=== PATIENT | female | born 1980 | race Caucasian/White ===

== ENCOUNTER → 2016-09-26 | Outpatient (CLI) | payer OTHER ==
--- NOTE | 2016-09-26 11:54 | Diagnostic Imaging Report ---
EXAMINATION: Left breast mammogram. INDICATION: Asymmetry along the lateral aspect of the left breast. Lumpy area in the lateral aspect of the left breast appears with cycle and is unchanged for 7 years. TECHNIQUE: Digital diagnostic mammography was performed of the left breast with a Computer Aided Detection (CAD) system. The area of asymmetry in the lateral aspect of the left breast was marked. COMPARISON: 02/17/2016. FINDINGS: There is an unchanged asymmetry along the lateral aspect of the left breast measuring about 6 mm. No definite correlate on the lateral projection. Otherwise, the slightly dense parenchyma is unchanged from the previous exam. The area marked for the lump in the outer aspect demonstrates no definitive underlying abnormality. Since this lump is unchanged for 7 years and is cyclic, it is indicative of benign etiology. IMPRESSION: Stable left breast mammogram. Another 6 month mammogram to ensure further stability of the lateral left breast asymmetry is recommended. ACR BI-RADS Category 3: Probably benign findings. Result letter will be mailed to the patient. Note: At least 10% of breast cancer is not imaged by mammography. Dictated by: Dictated on workstation # [id number]
== END ==
LOC: RAD 08:20
PROVIDERS: ATTEND Family Medicine
DX: R92.8 Other abnormal and inconclusive findings on diagnostic imaging of breast (principal)

== ENCOUNTER → 2017-03-16 | Outpatient (CLI) | payer OTHER ==
--- NOTE | 2017-03-16 19:14 | Diagnostic Imaging Report ---
Bilateral diagnostic mammogram. INDICATION: Follow-up lateral left breast asymmetry. The current study was also evaluated with a Computer Aided Detection (CAD) system. FINDINGS: The breasts are composed of scattered fibroglandular densities. The asymmetry seen along the outer aspect of the left breast appears less prominent compared to prior exam in favor of summation artifact of parenchyma with no definitive underlying mass seen on tomography evaluation. The right breast demonstrates no significant change. IMPRESSION: Less prominent asymmetry along the lateral aspect of the left breast is favored to be related to summation effect of parenchyma. No underlying lesion identified. Another follow-up in 12 months is recommended to ensure longer-term stability. ACR BI-RADS Category 3: Probably benign findings. Result letter will be mailed to the patient. Note: At least 10% of breast cancer is not imaged by mammography. Dictated by: Dictated on workstation # [id number]
== END ==
LOC: RAD 07:54
PROVIDERS: ATTEND Family Medicine
DX: N64.89 Other specified disorders of breast (principal)
CPT/HCPCS: 77066

== ENCOUNTER → 2017-05-11 | Outpatient (CLI) | payer OTHER ==
--- NOTE | 2017-05-11 10:09 | Diagnostic Imaging Report ---
CLINICAL INDICATION: Patient states all over headaches x2 months, memory issues, hearing issues, disturbing thoughts and deep left ear pain. Patient has history of traumatic brain injury at 15. EXAM: Axial CT scan of the brain performed without IV contrast. COMPARISON: None. FINDINGS: There is no evidence of acute cerebral infarct, intracranial hemorrhage, or gross mass effect. There is normal chicas-white matter distinction. The brain parenchymal volume appears appropriate for patient's age. There is no significant midline shift or herniation. There is no evidence of hydrocephalus. The basal cisterns are unremarkable. The skull, extracranial soft tissue, and orbits are unremarkable. The paranasal sinuses are unremarkable. IMPRESSION: Unremarkable CT scan of the brain. Dictated by: Dictated on workstation # [id number]
== END ==
LOC: RAD 09:30
PROVIDERS: ATTEND Family Medicine
DX: G44.059 Short lasting unilateral neuralgiform headache with conjunctival injection and tearing (SUNCT), not intractable (principal); H92.02 Otalgia, left ear
CPT/HCPCS: 70450

== ENCOUNTER → 2018-08-01 | Outpatient (CLI) | payer OTHER ==
--- NOTE | 2018-08-01 09:51 | Diagnostic Imaging Report ---
INDICATION: 12 month followup of left breast density. COMPARISON: 03/16/2017 and 02/17/2016. TECHNIQUE: 2D and 3D bilateral diagnostic mammography was performed with CAD. FINDINGS: Both breasts are heterogeneously dense, limiting the sensitivity of mammography. The asymmetric density in the outer left breast is stable. No new mass or malignant appearing microcalcifications are seen. The axillae are unremarkable. IMPRESSION: No mammographic features suspicious for malignancy. The patient may return to routine annual screening mammography. ACR BI-RADS Category 2: Benign findings. Result letter will be mailed to the patient. Note: At least 10% of breast cancer is not imaged by mammography. Dictated by: Dictated on workstation # [id number]
== END ==
LOC: RAD 09:06
PROVIDERS: ATTEND Family Medicine
DX: R92.2 Inconclusive mammogram (principal)
CPT/HCPCS: 77066

== ENCOUNTER → 2019-05-21 | Outpatient (CLI) | payer BC, OTHER ==
--- NOTE | 2019-05-21 16:00 | Diagnostic Imaging Report ---
INDICATION: Screening. The current study was also evaluated with a Computer Aided Detection (CAD) system. 3-D Tomographic imaging was also performed. COMPARISON: Comparison made with prior examinations from 08/01/2018, 03/16/2017, and 09/26/2016. FINDINGS: There are scattered fibroglandular densities bilaterally. There is no dominant mass, spiculated lesion, or suspicious calcification identified. There are a few benign-type calcifications. The skin, nipples, and axillae are unremarkable. IMPRESSION: Benign. ACR BI-RADS Category 2: Benign findings. Result letter will be mailed to the patient. Note: At least 10% of breast cancer is not imaged by mammography. Dictated by: Dictated on workstation # [id number]
== END ==
LOC: RAD 14:47
PROVIDERS: ATTEND Family Medicine
DX: Z12.31 Encounter for screening mammogram for malignant neoplasm of breast (principal)
CPT/HCPCS: 77067

== ENCOUNTER → 2019-05-27 | Outpatient (CLI) | payer BC ==
--- NOTE | 2019-05-27 17:12 | Diagnostic Imaging Report ---
PROCEDURE: US Non-ob pelvis comp/trans. TECHNIQUE: Multiple realtime grayscale images were obtained of the pelvis in various projections endovaginally. Transabdominal imaging was also performed. INDICATION: Abnormal uterine bleeding. FINDINGS: Uterus measures 9.1 x 4.7 x 5.6 cm without evidence of focal lesion. Endometrial thickness is 0.9 cm. Right ovary measures 2.2 x 2.6 x 2.6 cm and contains a heterogeneous nodular focus measuring 1.8 x 1.5 x 1.5 cm. Left ovary is somewhat obscured due to overlying bowel and measures approximately 2.8 x 1.5 x 1.6 cm. Blood flow cannot be confirmed in the left ovary. There is no significant pelvic free fluid. IMPRESSION: 1.8 x 1.5 cm nodule in the right ovary may represent hemorrhagic cyst. This could be further assessed on short-term follow-up study in two to three months. There is no evidence of ovarian torsion, although blood flow to the left ovary cannot be confirmed due to technical factors. Dictated by: Dictated on workstation # [id number]
== END ==
LOC: RAD 14:42
PROVIDERS: ATTEND Obstetrics & Gynecology
DX: N83.9 Noninflammatory disorder of ovary, fallopian tube and broad ligament, unspecified (principal); N93.8 Other specified abnormal uterine and vaginal bleeding
CPT/HCPCS: 76830; 76856

== ENCOUNTER → 2020-04-30 | Outpatient (CLI) | payer BC ==
--- NOTE | 2020-04-30 09:06 | Diagnostic Imaging Report ---
INDICATION: Routine screening. COMPARISON is made with prior mammograms of 05/21/2019 and 08/01/2018. 2-D and 3-D bilateral screening mammography was performed with CAD. Both breasts remain heterogeneously dense, limiting the sensitivity of mammography. There is a density in the posterior right breast lateral to the nipple line best seen on the CC view which appears more prominent on today's study. No definite correlate on the MLO view is identified but additional views are still recommended. The left breast is unremarkable. No malignant appearing microcalcifications are seen. Axillae are unremarkable. IMPRESSION: BI-RADS 0 Right breast density. Additional views are recommended for further evaluation. ACR BI-RADS Category 0: Incomplete. (Needs additional imaging evaluation). Result letter will be mailed to the patient. Note: At least 10% of breast cancer is not imaged by mammography. Dictated by: Dictated on workstation # [id number]
== END ==
LOC: RAD 08:00
PROVIDERS: ATTEND Student in an Organized Health Care Education/Training Program
DX: Z12.31 Encounter for screening mammogram for malignant neoplasm of breast (principal); R92.2 Inconclusive mammogram
CPT/HCPCS: 77063; 77067

== ENCOUNTER → 2020-05-13 | Outpatient (CLI) | payer BC ==
--- NOTE | 2020-05-14 08:07 | Diagnostic Imaging Report ---
INDICATION: A right breast density. Correlation is made with diagnostic mammogram earlier the same day and screening mammogram from 04/30/2020. Sonographic interrogation of outer right breast was performed. No suspicious sonographic abnormality is identified to account for the nodular density noted on mammogram. There is a tiny cyst at the 8 o'clock location 3 cm from the nipple measuring 3 mm. This likely incidental. IMPRESSION: BI-RADS Category 0 No sonographic abnormality is identified to account for the nodular density in the far posterior right breast slightly lateral of the midline. While this could represent superimposed fibroglandular tissue and it is reassuring that no sonographic abnormality is detected, breast MRI would be recommended for further evaluation, as patient is scheduled to undergo breast reduction surgery in 1 week. Dictated by: Dictated on workstation # [id number]
--- NOTE | 2020-05-15 08:44 | Diagnostic Imaging Report ---
INDICATION: Right breast density. Patient presents for additional views. Correlation is made with screening mammogram from 04/30/2020. Unilateral right 2-D and 3-D diagnostic mammography was performed. This includes spot compression CC, rolled CC as well as conventional 90 degree lateral views. Additional views show a persistent somewhat nodular density in the outer aspect of the right breast at posterior depth. This is not well-seen on the lateral view. This may be superiorly located on the tomographic mL image 25 of 72. No suspicious calcifications are seen. IMPRESSION: BI-RADS 0 Additional views show persistent nodular density in the outer aspect of the right breast posterior depth. This appears to be superiorly located on the MLO view. Further evaluation with ultrasound is recommended. ACR BI-RADS Category 0: Incomplete. (Needs additional imaging evaluation). Result letter will be mailed to the patient. Note: At least 10% of breast cancer is not imaged by mammography. Dictated by: Dictated on workstation # [id number]
== END ==
LOC: RAD 12:45
PROVIDERS: ATTEND Student in an Organized Health Care Education/Training Program
DX: R92.8 Other abnormal and inconclusive findings on diagnostic imaging of breast (principal)
CPT/HCPCS: 76642; 77065; G0279

== ENCOUNTER → 2020-05-18 | Outpatient (CLI) | payer BC ==
[~2020-05-18] MED LIST: GADOBUTROL 15 MMOL/15 ML (GADAVIST) VIAL IV ONE
--- NOTE | 2020-05-18 17:25 | Diagnostic Imaging Report ---
EXAMINATION: MRI BREAST BILAT W W/O CON INDICATION: BREAST MASS RT TECHNIQUE: Utilizing a 1.5 Mariia magnet, the patient was placed in the prone position with a dedicated breast coil in place. Axial STIR, T2 fat sat, T1 and T1 fat-sat images are obtained without contrast. Postcontrast high-resolution dynamic images are also obtained. Pre and post contrasted images are then evaluated with [employer] for evaluation of possible angiogenesis. 7 mL of gadolinium contrast material was administered intravenously. COMPARISON: Comparison is made to recent screening mammogram performed on 04/30/2020 and subsequent diagnostic right breast mammogram and ultrasound performed on 05/13/2020. Comparison is also made to more remote breast imaging dating back to 2012. FINDINGS: The breasts are composed of scattered fibroglandular tissue. There is mild background parenchymal enhancement, with scattered foci of enhancement in both breasts also felt to be related to background. There is no suspicious mass or non-mass enhancement in either breast. There is no definite finding in the right breast to correspond with the previously demonstrated asymmetry in the outer right breast on mammogram. There is no axillary or internal mammary adenopathy. IMPRESSION: No MR evidence of malignancy in either breast. No definite finding to correlate with prior mammographic asymmetry in the outer right breast. The prior mammographic finding remains indeterminate although is favored to represent fibroglandular tissue, as it has had a similar appearance on prior mammograms. Given patient's upcoming breast reduction surgery, if there is need for definitive characterization of this mammographic finding, tomosynthesis guided biopsy should be performed. BI-RADS Category 1: Negative Dictated by: Dictated on workstation # [id number]
== END ==
LOC: RAD 05-14 12:02
PROVIDERS: ATTEND Student in an Organized Health Care Education/Training Program
DX: N63.10 Unspecified lump in the right breast, unspecified quadrant (principal)
CPT/HCPCS: 77049

== ENCOUNTER → 2021-11-16 | Outpatient (CLI) | payer BC ==
--- NOTE | 2021-11-16 13:19 | Diagnostic Imaging Report ---
PROCEDURE: Pelvic comp/transvaginal sonogram. TECHNIQUE: Complete transabdominal and transvaginal pelvic ultrasound was performed. In addition, limited pelvic Doppler was performed. INDICATION: Pelvic pain. FINDINGS: The uterus is anteverted measuring 7.3 x 4.0 x 5.7 cm. The endometrium is 5 mm in thickness. No myometrial mass is detected. The right ovary measures 3.0 x 1.7 x 2.3 cm and the left ovary measures 2.8 x 2.4 x 2.0 cm. Both ovaries contain follicles. There is blood flow to both ovaries. No adnexal mass or free fluid is detected. IMPRESSION: Unremarkable transabdominal and transvaginal pelvic ultrasound. Dictated by: Dictated on workstation # [id number]
== END ==
LOC: RAD 11:48
PROVIDERS: ATTEND Nurse Practitioner Family
DX: R10.2 Pelvic and perineal pain (principal)
CPT/HCPCS: 76830; 76856

== ENCOUNTER → 2022-01-18 | Outpatient (CLI) | payer BC ==
[~2022-01-18] MED LIST changes: +CATHETER FLUSH 10 ML SYR IV PRN; -GADOBUTROL 15 MMOL/15 ML (GADAVIST) VIAL IV ONE; +HOLD METFORMIN - RECEIVED CONTRAST 20 ML VIAL IV SCH; +IOHEXOL 350 MG/ML 100 ML (OMNIPAQUE 350) VIAL IV ONE; +NS 100 ML (IVPB) BAG IV ONE
--- NOTE | 2022-01-18 11:08 | Diagnostic Imaging Report ---
PROCEDURE: CT abdomen and pelvis with contrast. TECHNIQUE: Multiple contiguous axial images were obtained through the abdomen and pelvis after administration of intravenous contrast. Auto Exposure Controls were utilized during the CT exam to meet ALARA standards for radiation dose reduction. All CT scans use one or more of the following dose optimizing techniques: automated exposure control, MA and/or KvP adjustment based on patient size and exam type or iterative reconstruction. INDICATION: Right lower quadrant pain. COMPARISON: Correlation is made with the prior CT of 01/26/2016. FINDINGS: Imaging through the lung bases does show a small nodule in the left lower lobe measuring 7 mm. This compares with 5 mm on the prior exam. The liver demonstrates diffuse low attenuation, consistent with hepatic steatosis. No liver mass is detected. The gallbladder is unremarkable. There is no biliary ductal dilatation. The pancreas and spleen are unremarkable. No adrenal mass is detected. The kidneys are unremarkable. The aorta is nonaneurysmal. The small and large bowel loops are of normal caliber. There is no obstruction. There is no free fluid or fluid collection. The uterus is unremarkable. There is a small left adnexal cyst. The bladder is unremarkable. The bony structures appear nonacute. IMPRESSION: 1. Slight increase in size of a left lower lobe pulmonary nodule when compared with the study from [address] chest in 6-12 months would be recommended to confirm stability. 2. Hepatic steatosis. 3. Otherwise, unremarkable CT abdomen and pelvis study. Dictated by: Dictated on workstation # [id number]
--- NOTE | 2022-01-18 11:32 | Diagnostic Imaging Report ---
INDICATION: Routine screening. COMPARISON: 04/30/2020 and 05/21/2019. TECHNIQUE: 2D and 3D bilateral screening mammography was performed with CAD. FINDINGS: Both breasts are heterogeneously dense, limiting the sensitivity of mammography. Since the prior exam, the patient has undergone breast reduction surgery. No mass or malignant-appearing microcalcifications are seen. The axillae are unremarkable. IMPRESSION: No mammographic features suspicious for malignancy are identified. ACR BI-RADS Category 1: Negative. Result letter will be mailed to the patient. Note: At least 10% of breast cancer is not imaged by mammography. Dictated by: Dictated on workstation # [id number]
== END ==
LOC: RAD 08:56
PROVIDERS: ATTEND Obstetrics & Gynecology
DX: Z12.31 Encounter for screening mammogram for malignant neoplasm of breast (principal); K76.0 Fatty (change of) liver, not elsewhere classified; R91.1 Solitary pulmonary nodule
CPT/HCPCS: 74177; 77063; 77067

== ENCOUNTER 2022-03-14 05:30 | Outpatient (CLI) | payer BC ==
[~2022-03-14] VITALS: Ht 177.8 cm; Wt 86.4 kg
[2022-03-14] MEDS ORDERED: ESCI20TA PO (13:27)
== END 2022-03-14 13:30 | disposition home or self-care (01) ==
LOC: PREOP 05:30
PROVIDERS: ATTEND Obstetrics & Gynecology
DX: Z01.818 Encounter for other preprocedural examination (principal)

== ENCOUNTER 2022-03-21 07:00 | Day surgery (SDC) | payer BC ==
[2022-03-21] VITALS (11 sets, daily range): BP systolic 109–124; BP diastolic 47–80
[~2022-03-21] VITALS: Ht 177 cm; Wt 86.4 kg
[~2022-03-21 07:00] MED LIST changes: -CATHETER FLUSH 10 ML SYR IV PRN; +ESCI20TA PO; -HOLD METFORMIN - RECEIVED CONTRAST 20 ML VIAL IV SCH; -IOHEXOL 350 MG/ML 100 ML (OMNIPAQUE 350) VIAL IV ONE; -NS 100 ML (IVPB) BAG IV ONE
[2022-03-21] MEDS ORDERED: BUPIVACAINE 0.25% 30 ML (SENSORCAINE) VIAL ONE (07:20)
[2022-03-21] MEDS ORDERED: ONDANSETRON 4 MG/2 ML (SDV) Z0FRAN ONE ×2 (07:29→07:51)
[2022-03-21] MEDS ORDERED: proPOfol 200 MG/20 ML (DIPRIVAN) VIAL IV ONE (07:29)
[2022-03-21] MEDS ORDERED: ROCURONIUM 10 MG/ML 5 ML SYRINGE IV ONE (07:29)
[2022-03-21] MEDS ORDERED: LIDOCAINE PF 2% 5 ML (XYLOCAINE) VIAL ONE (07:29)
[2022-03-21] MEDS ORDERED: MIDAZOLAM 2 MG/2 ML (VERSED) VIAL ONE (07:30)
[2022-03-21] MEDS ORDERED: fentaNYL INJ 100 MCG/2 ML AMP ONE (07:30)
[2022-03-21 07:40] LABS: BASOPHILS # (AUTO) 0.1 10^3/uL (0.0-0.1); BASOPHILS % (AUTO) 1 % (0-10); EOSINOPHILS # (AUTO) 0.3 10^3/uL (0.0-0.3); EOSINOPHILS % (AUTO) 3 % (0-10); HEMATOCRIT 40 % (35-52); HEMOGLOBIN 13.2 g/dL (11.5-16.0); LYMPHOCYTES # (AUTO) 2.2 10^3/uL (1.0-4.0); LYMPHOCYTES % (AUTO) 21 % (12-44); MEAN CORPUSCULAR HEMOGLOBIN 28 pg (25-34); MEAN CORPUSCULAR HGB CONC 33 g/dL (32-36); MEAN CORPUSCULAR VOLUME 84 fL (80-99); MONOCYTES % (AUTO) 9 % (0-12); NEUTROPHILS # (AUTO) 6.8 10^3/uL (1.8-7.8); NEUTROPHILS % (AUTO) 65 % (42-75); PLATELET COUNT 352 10^3/uL (130-400); WHITE BLOOD COUNT 10.4 10^3/uL (4.3-11.0)
[2022-03-21] MEDS ORDERED: FAMOTIDINE 20MG/2ML IV (PEPCID) ONE (07:52)
[2022-03-21] MEDS: LACTATED RINGERS 1,000 ML IV PRN ×2 (07:55→09:10)
[2022-03-21] MEDS ORDERED: FAMOTIDINE 20MG/2ML IV (PEPCID) IV ONE (08:00)
[2022-03-21] MEDS ORDERED: ONDANSETRON 4 MG/2 ML (SDV) Z0FRAN IV ONE (08:00)
[2022-03-21] MEDS ORDERED: BUPIVACAINE 0.25% 30 ML (SENSORCAINE) VIAL INJ ONE (09:10)
--- NOTE | 2022-03-21 09:10 | Discharge Inst-Women's Service ---
Discharge Inst-Women's Serv Depart Medication/Instructions New, Converted or Re-Newed RX: Transmitted to Pharmacy Problems Reviewed?: Yes Consults/Follow Up Additional Follow Up: Yes Orders/Referrals Dr. Lai in 7-10 days Activity Activity: Activity as Tolerated Driving Instructions: No Driving for 1 Week NO SMOKING: NO SMOKING Nothing Inside Vagina: No Douching, No [place], No Tampons Diet Discharge Diet: No Restrictions Symptoms to Report to : Bleeding Excessive, Pain Increased, Fever Over 101 Degrees F, Vaginal Bleeding Increase, Questions/Concerns For Any Problems or Questions: Contact Your Physician Skin/Wound Care Infection Signs and Symptoms: Increased Redness, Foul Odor of Wound, Increased Drainage, Skin Itchy or Has a Rash, Increased Swelling, Temperature Above 101 F Operative Area Clean and Dry: Keep Incision Clean/Dry Stitches/[place]/Dermabond: Dermabond, Care of Stitches Bathing Instructions: NNAMDI Bartlett DO Mar 21, 2022 09:10
[2022-03-21] MEDS ORDERED: IBUP-1773 PO (09:11)
[2022-03-21] MEDS ORDERED: ACHD5005 PO (09:11)
--- NOTE | 2022-03-21 09:12 | Progress Note-Pre Operative ---
Pre-Operative Progress Note Date of Available H&P: Mar 21, 2022 Date H&P Reviewed: Mar 21, 2022 Time H&P Reviewed: 08:35 History & Physical: H&P Reviewed, Patient Examed, No changes noted Pre-Operative Diagnosis: CPP, Pain with defecation. NNAMDI VILLA DO Mar 21, 2022 09:12
[2022-03-21] MEDS ORDERED: ONDANSETRON 4 MG/2 ML (SDV) Z0FRAN IVP PRN ×2 (09:15→10:00)
[2022-03-21] MEDS ORDERED: KETOROLAC 30 MG/ML VIAL IVP ONE (09:15)
[2022-03-21] MEDS ORDERED: HYDROcodone/APAP 5 MG/325 MG (LORTAB) TAB PO PRN (09:15)
[2022-03-21] MEDS ORDERED: D5 LR IV SOLUTION 1,000 ML IV SCH (09:15)
[2022-03-21] MEDS ORDERED: GLYCOPYRROLATE 0.2 MG/ML (ROBINUL) 2 ML VIAL ONE (09:33)
[2022-03-21] MEDS ORDERED: NEOSTIGMINE (BLOXIVERZ ) 1 MG/1ML 10 ML VIAL ONE (09:33)
[2022-03-21] MEDS ORDERED: SEVOFLURANE (ULTANE) 15 ML INHAL SOLN ONE (09:37)
[2022-03-21] MEDS ORDERED: KETOROLAC 30 MG/ML VIAL ONE (09:58)
[2022-03-21] MEDS ORDERED: HYDROmorphone 2 MG/ML VIAL (DILAUDID) ONE (09:58)
[2022-03-21] MEDS ORDERED: morphine INJ 10 MG/ML 1ML (SYR OR VIAL) IVP ONE (10:00)
[2022-03-21] MEDS ORDERED: HYDROmorphone 2 MG/ML VIAL (DILAUDID) IV ONE (10:00)
[2022-03-21] MEDS ORDERED: MEPERIDINE (DEMEROL) INJ 50 MG/ML IVP ONE (10:00)
[2022-03-21] MEDS ORDERED: PROMETHAZINE INJ 25 MG/ML (PHENERGAN) AMP IVP ONE (10:00)
--- NOTE | 2022-03-21 12:00 | Anesthesia-General Post-Op ---
General Patient Condition Mental Status/LOC: Same as Preop Cardiovascular: Satisfactory Nausea/Vomiting: Absent Respiratory: Satisfactory Pain: Controlled Complications: Absent Post Op Complications Complications None Follow Up Care/Instructions Patient Instructions None needed. Anesthesia/Patient Condition Patient Condition Patient is doing well, no complaints, stable vital signs, no apparent adverse anesthesia problems. No complications reported per nursing. LEONIE HARO CRNA Mar 21, 2022 12:00
--- NOTE | 2022-03-21 15:44 | OPERATIVE REPORT ---
DATE OF SERVICE: 03/21/2022 PREOPERATIVE DIAGNOSES: 1. A 38-year-old female with chronic pelvic pain. 2. Pain with defecation. POSTOPERATIVE DIAGNOSES: 1. A 38-year-old female with chronic pelvic pain. 2. Pain with defecation. PROCEDURES PERFORMED: Laparoscopy with lysis of adhesions. SURGEON: Stu Lai DO. ANESTHESIA: LMA general. ESTIMATED BLOOD LOSS: Minimal. URINE OUTPUT: 50 mL clear at the end of procedure. FLUIDS: 800 mL of lactated Ringer's solution. FINDINGS: Grossly normal-appearing external female genitalia. Grossly normal appearing uterus, bilateral fallopian tubes and ovaries with adhesions of the descending sigmoid colon to the left uterosacral ligament. SPECIMEN SENT: None. INDICATIONS FOR PROCEDURE: This 41-year-old female is a patient, who had sought care in my office for annual well-woman exam. She had been complaining for the last two years, about chronic pelvic pain that comes and goes, more recently has become pain with defecation. Upon discussing this with the patient and she wishes to address it. Imaging and ultrasound were all negative for any type of gross anatomic abnormalities seen on imaging. I then discussed with the patient, performing diagnostic laparoscopy. Risks of this were discussed with the patient in detail. After all of her questions were answered, consent was obtained and the patient was agreeable to proceed. DESCRIPTION OF PROCEDURE: She was taken to the operating room. Once in the operating room, anesthesia was found to be adequate, was placed in dorsal lithotomy position and prepped and draped in a normal sterile fashion. Timeout was performed. A Weaver catheter was placed using a sterile technique. A weighted speculum was inserted in the patient's vagina, which allowed me to visualize the cervix, which I grasped at 12 o'clock position using a single tooth tenaculum and placed a Kronner uterine manipulator to a depth of 8 cm. I deployed the balloon within the uterus to remove all the other instruments from the patient's vagina, performed change of gloves, and turned my attention to the abdomen, where subcostally at the midclavicular line on the left, I introduced a Veress needle until intraperitoneal placement was confirmed using a saline drop test and an opening pressure of 5 mmHg was noted. I proceeded to a maximum pressure of 15 mmHg using CO2 gas. I then made a 5 mm infraumbilical incision and directed blunt laparoscopic trocar through the incision to ensure placement, was confirmed using the laparoscope. There was no evidence of damage from the entry site. A brief scan of the upper abdominal anatomy appears to be grossly normal. The Veress needle was identified and free of causing any damage or bleeding. I then removed the Veress needle as well. I then had the patient placed in a deep Trendelenburg allowing me to visualize all my pelvic anatomy as defined in my findings above. The bilateral ovaries, fallopian tubes, uterus and anterior cul-de-sac were all normal and without any issues or concerns. There are some concerns of the left uterosacral ligament and a suspicion for endometriosis with adhesions of the sigmoid to the left uterosacral ligament. I placed a suprapubic trocar. This was a 5 mm trocar under direct visualization laparoscope. Once this was in place, I am able to take down these adhesions using blunt dissection, after which, there was no active bleeding noted from any of my dissection planes. I then copiously irrigated the pelvis using normal saline. Once again, there was no active bleeding noted from any of my dissection planes. I then had the patient taken out of steep Trendelenburg, where I removed the suprapubic trocar under direct visualization of laparoscope. The infraumbilical trocar was left in place to release the remainder of the insufflation and introduced 10 mL of 0.25% Marcaine in the peritoneal cavity for postoperative pain management. I then removed the infraumbilical trochar as well. Skin was reapproximated using Dermabond. Bandages were placed over the incisions. Weaver catheter and Kronner uterine manipulator were removed at the end of the procedure. The patient tolerated the procedure well and was taken to recovery area in stable condition. Lap and sponge counts were correct at the end of procedure, instrument counts were correct as well. Job ID: [id number] DocumentID: [id number] Dictated Date: 03/21/2022 10:06:48 Magician/Illusionist Date: 03/21/2022 15:42:00 Dictated By: DO DOMINIK CROCKETT
== END 2022-03-21 11:40 | disposition home or self-care (01) ==
LOC: SDC 07:00
PROVIDERS: ATTEND Obstetrics & Gynecology
DX: K66.0 Peritoneal adhesions (postprocedural) (postinfection) (principal); K62.89 Other specified diseases of anus and rectum; Z28.310 Unvaccinated for COVID-19
CPT/HCPCS: 36415; 84703; 85025; 86850; 86900; 86901; 87081